=== PATIENT | female | born 1990 | race Caucasian/White ===

== ENCOUNTER 2023-07-21 10:17 | Day surgery (SDC) | payer OTHER ==
--- NOTE | 2023-07-21 09:13 | HP ---
DATE OF SURGERY: 07/21/2023 HISTORY OF PRESENT ILLNESS: The patient is a 33-year-old with prior history of enlarged hemorrhoid few months ago that Proctinum helped. She had bleeding then and better now, a week or two before started a bout of constipation, internal and external hemorrhoids flare then. No prior colonoscopy. Family history negative for colon cancer. PAST MEDICAL HISTORY: She wears corrective lenses otherwise no chronic illnesses. PAST SURGICAL HISTORY: T&A. MEDICATIONS: None on a regular basis. ALLERGIES: CEPHALEXIN. FAMILY HISTORY: Negative in regards to this problem. SOCIAL HISTORY: No smoking. Occasional alcohol use. REVIEW OF SYSTEMS: Twelve systems reviewed. No chest pain or palpitations. Other systems negative or noncontributory as above and per preadmission questionnaire. PHYSICAL EXAMINATION: Height 5 feet, 5 inches. BMI 26.29. GENERAL: No acute distress. HEENT: Sclerae nonicteric. EOMI. Oral mucous membranes moist. NECK: No JVD. CHEST: Equal excursion, nonlabored breathing. CVS: Regular rate and rhythm. ABDOMEN: Soft. No peritoneal signs. EXTREMITIES: No significant edema. NEURO: Alert, oriented, moving extremities symmetrically. RECTAL: No thrombosed external component now. PSYCH: Appropriate mood and affect. SKIN: Dry. IMPRESSION: History of rectal bleeding. There had been transient hemorrhoid flare. No hemorrhoid surgery necessary at this time but given the history of rectal bleeding, I recommend colonoscopy to rule out polyps, colitis, neoplasia or other etiology. She was shown the risk sheet, explained the procedure in detail including but not limited to risk of bleeding or infection, risk of bowel injury or perforation possibly requiring further procedure, risk of missed or nondiagnosis, possible need for other procedure or referral, risk of anesthesia or sedation, risk of bowel prep but not limited to. Will proceed with outpatient colonoscopy under MAC anesthesia.
[2023-07-21 10:35] LABS: HCG URINE TEST NEGATIVE (NEGATIVE)
[2023-07-21] MEDS ORDERED: Lactated Ringers 1,000 ML IV ONE (10:40)
[2023-07-21 10:45] VITALS: RESP 16
[2023-07-21] MEDS ORDERED: Xylocaine-Mpf 2% 5 Ml Vial ONE (12:31)
[2023-07-21] MEDS ORDERED: DIPRIVAN 200 MG/20 ML IV ONE ×2 (12:31→12:41)
[2023-07-21] MEDS ORDERED: Versed 2 MG/2 ML Injection ONE (12:31)
[2023-07-21 14:01] VITALS: BP 125/62; PULSE 76; TEMP 98.3; O2SAT 99
--- NOTE | 2023-07-21 15:00 | OP ---
SURGERY DATE/TIME: 07/21/2023 1236 PREOPERATIVE DIAGNOSIS: Prior history of rectal bleeding, need for colonoscopy. POSTOPERATIVE DIAGNOSES: 1) Small internal and external hemorrhoids. 2) Good prep. 3) Small raised lesion versus nodule rectum. 4) ASA Class I. PROCEDURES: 1) Colonoscopy to cecum. 2) Hot biopsy of the small raised lesion versus nodule rectum, path pending. SURGEON: Dr. Duong Mills. ANESTHESIA: MAC. ESTIMATED BLOOD LOSS: Minimal. INDICATIONS: As noted above. Risks and benefits explained in detail but not limited to and consent obtained. DESCRIPTION OF PROCEDURE AND FINDINGS: The patient is taken to the endoscopy room. MAC anesthesia induced. After official time out and no disagreement with planned procedure, digital rectal exam did not reveal any rectal masses. She did have some small internal and external hemorrhoids. Video colonoscope inserted and passed up through the slightly tortuous sigmoid, descending, transverse and ascending colon around to the cecum. Appendiceal orifice and valve well visualized and photo documented. Scope was then carefully withdrawn over the next nine minutes. The prep overall was good. There is minimal liquidy stool suctioned and irrigated as clear as possible. The scope is slowly and carefully withdrawn. No signs of any large polyps, masses or obstructing lesions. The scope is pulled back. There was one small, little pale appearing raised lesion or nodule in the rectum that was biopsied with hot biopsy, path pending. Good hemostasis noted. No signs of active bleeding. On retroflex just small internal hemorrhoid. The scope is straightened and withdrawn and again showed small internal and external hemorrhoids. There were no signs of any other large polyps, masses or obstructing lesions that had caused her bleeding in the past. Her hemorrhoids did not appear large enough to warrant any significant intervention at this time. The scope is withdrawn. Findings discussed with the family out in the waiting area.
== END 2023-07-21 13:50 | disposition home or self-care (01) ==
LOC: SDC 10:17
PROVIDERS: ATTEND Surgery
DX: Z87.19 Personal history of other diseases of the digestive system (principal); K64.4 Residual hemorrhoidal skin tags; K64.8 Other hemorrhoids; K62.9 Disease of anus and rectum, unspecified; D3A.026 Benign carcinoid tumor of the rectum
CPT/HCPCS: 81025; J2250; J2704

== ENCOUNTER 2023-12-29 10:02 | Day surgery (SDC) | payer OTHER ==
--- NOTE | 2023-12-28 23:10 | HP ---
HISTORY AND PHYSICAL HISTORY OF PRESENT ILLNESS: Had a nuclear scan and PET scan, questionable mild uptake in the stomach, question of peripancreatic node, and the patient needs an EGD for further evaluation. PAST MEDICAL HISTORY: Wears corrective lenses. HOME MEDICATIONS: No medications on a regular basis. ALLERGIES: Cephalexin. PAST SURGICAL HISTORY: Tonsillectomy and adenoidectomy in the past. SOCIAL HISTORY: No smoking. Occasional alcohol use. FAMILY HISTORY: Negative with regard to this problem. REVIEW OF SYSTEMS: Twelve systems reviewed. No chest pain or palpitations. Other systems negative or noncontributory as above and per preadmission questionnaire. PHYSICAL EXAMINATION: GENERAL: Height 5 feet 5 inches. BMI 26.29. HEENT: Anicteric sclerae. NECK: No JVD. CHEST: Clear, nonlabored breathing. CARDIOVASCULAR: Regular rate and rhythm. ABDOMEN: Soft. No peritoneal signs. EXTREMITIES: No clubbing, cyanosis or edema. NEUROLOGIC: Alert and oriented, moving all extremities symmetrically. PSYCHIATRIC: Appropriate mood and affect. IMPRESSION: History of abnormal PET scan and some mild uptake in the stomach and question of peripancreatic node. Needs EGD to evaluate for the etiology. Risks explained in detail including bleeding or infection, risk of bowel injury or perforation, risk of missed or nondiagnosis or incomplete exam possibly requiring barium swallow, other studies or procedures. General risk of anesthesia and sedation but not limited to. She understands and agrees with the plan. We will proceed with EGD under MAC anesthesia as an outpatient.
[2023-12-29] MEDS ORDERED: Lactated Ringers 1,000 ML IV ONE ×2 (10:12→12:29)
[2023-12-29 10:14] LABS: HCG URINE TEST NEGATIVE (NEGATIVE)
[2023-12-29] MEDS: Lactated Ringers 1,000 ML IV SCH (10:16)
[2023-12-29 10:20] VITALS: RESP 16
[2023-12-29] MEDS ORDERED: DIPRIVAN 200 MG/20 ML IV ONE ×2 (12:45→12:49)
[2023-12-29 13:36] VITALS: TEMP 97.5
[2023-12-29 13:44] VITALS: BP 147/70; PULSE 59; O2SAT 100
--- NOTE | 2023-12-30 10:07 | OP ---
SURGERY DATE/TIME: 12/29/2023 1244 - 125 PREOPERATIVE DIAGNOSIS: History of abnormal PET scan, some uptake in the stomach, need for further upper endoscopy for evaluation. POSTOPERATIVE DIAGNOSES: Minimal mild gastric erythema. No endoscopically visible nodules. PROCEDURE: 1) Esophagogastroduodenoscopy with cold biopsy of the small bowel for histology. 2) Multiple cold biopsies of antrum, body of the stomach, and proximal stomach; evaluate for histology and Helicobacter pylori. 3) Cold biopsy, distal esophagus. SURGEON: Jake Mills MD ANESTHESIA: MAC. ESTIMATED BLOOD LOSS: Minimal. INDICATIONS: As noted above, consent obtained. DESCRIPTION OF PROCEDURE AND FINDINGS: Patient was taken to the endoscopy room. MAC anesthesia was induced after official time-out for planned procedure. Bite block positioned. Video gastroscope easily passed down the esophagus through the patent pylorus to the junction of the third and fourth portions of the duodenum. The duodenum was grossly unremarkable, but given her abnormal PET scan, random cold biopsies were taken from the small bowel to evaluate for histology. Good hemostasis was noted. Scope pulled back in the stomach. There had some gastric erythema but no signs of any ulcers. No signs of any masses or nodules. No signs of any gross neuroendocrine tumors or other masses. Cold biopsy was taken of the antrum for histology as well as the gastric body, as well as the proximal stomach. On retroflex, the GE junction was fairly snug against the scope. No signs of any large hiatal hernia. The scope was straightened. The GE junction was about 38 to 39 cm. Z-line was fairly crisp. There was just slight pinkness on the esophageal side, and cold biopsy was taken of the distal esophagus. Good hemostasis was noted. The remainder of the esophagus was grossly unremarkable with no signs of any masses or lesions. Findings were discussed with the family out in the waiting area.
== END 2023-12-29 13:53 | disposition home or self-care (01) ==
LOC: SDC 10:02
PROVIDERS: ATTEND Surgery
DX: K29.70 Gastritis, unspecified, without bleeding (principal); R93.89 Abnormal findings on diagnostic imaging of other specified body structures; K31.89 Other diseases of stomach and duodenum
CPT/HCPCS: 81025; J2704